=== PATIENT | male | born 1980 | race Caucasian/White ===

== ENCOUNTER 2022-08-01 19:32 | Emergency (ER) | payer BC, OTHER ==
[~2022-08-01] VITALS: Ht 178 cm; Wt 118.0 kg
[2022-08-01] MEDS ORDERED: ASPI-479 (19:45)
[2022-08-01] MEDS ORDERED: MECL-149 (19:45)
[2022-08-01] MEDS ORDERED: FAMO20TA5 (19:45)
[2022-08-01] MEDS ORDERED: MULT-567 (19:45)
[2022-08-01] MEDS ORDERED: NS IV 1000 ML 1,000 ML IV SCH (20:00)
[2022-08-01] MEDS ORDERED: ONDANSETRON 4 MG/2 ML (SDV) Z0FRAN IVP ONE (20:00)
[2022-08-01 20:09] LABS: BASOPHILS % (AUTO) 0 % (0-10); EOSINOPHILS % (AUTO) 0 % (0-10); HEMATOCRIT 49 % (40-54); HEMOGLOBIN 16.8 g/dL (13.3-17.7); LYMPHOCYTES # (AUTO) 1.2 10^3/uL (1.0-4.0); LYMPHOCYTES % (AUTO) 9 % (12-44); MEAN CORPUSCULAR HEMOGLOBIN 31 pg (25-34); MEAN CORPUSCULAR HGB CONC 35 g/dL (32-36); MEAN CORPUSCULAR VOLUME 90 fL (80-99); MEAN PLATELET VOLUME 9.9 fL (9.0-12.2); MONOCYTES # (AUTO) 0.6 10^3/uL (0.0-1.0); MONOCYTES % (AUTO) 5 % (0-12); NEUTROPHILS % (AUTO) 85 % (42-75); PLATELET COUNT 266 10^3/uL (130-400); WHITE BLOOD COUNT 12.9 10^3/uL (4.3-11.0)
[2022-08-01 20:29] LABS: ALBUMIN 4.4 GM/DL (3.2-4.5); BILIRUBIN,TOTAL 0.3 MG/DL (0.1-1.0); CALCIUM 9.6 MG/DL (8.5-10.1); CREATININE SERUM 1.1 MG/DL (0.60-1.30); POTASSIUM 4.1 MMOL/L (3.6-5.0); TOTAL PROTEIN 7.7 GM/DL (6.4-8.2)
[2022-08-01] MEDS ORDERED: MECLIZINE 25 MG (ANTIVERT) TAB PO ONE (20:45)
[2022-08-01] MEDS ORDERED: MECL-149 PO (20:58)
[2022-08-01] MEDS ORDERED: ONDA4TAB11 SL (20:58)
--- NOTE | 2022-08-01 20:59 | ED General ---
General Chief Complaint: Dizziness/Syncope Stated Complaint: VOMITING/DIZZY Nursing Triage Note: woke up at 0400 with spinning dizziness causing n/v with sudden movement. seen at [facility] & sent here. Source of Information: Patient Exam Limitations: No Limitations (RASHID MESSER APRN) History of Present Illness Date Seen by Provider: Aug 01, 2022 Time Seen by Provider: 19:40 Initial Comments Patient is a 42-year-old male who presents to the emergency department for evaluation of dizziness, nausea, and vomiting that began acutely this morning at 4 AM. Patient denies any pain at this time. He states he has had episodes of similar symptomology in the past. He was seen at [facility] walk-in [facility] and referred here for further evaluation. Patient states he feels like the room is spinning especially when he changes positions or moves his head. He states this spinning causes him to feel nauseous and vomit. Denies any focal numbness/weakness. Denies any vision change. He has not taken anything for the symptoms today. (RASHID MESSER APRN) Allergies and Home Medications Allergies Coded Allergies: sertraline (Verified Allergy, Unknown, 08/01/22) Patient Home Medication List Home Medication List Reviewed: Yes (RASHID MESSER APRN) Aspirin (Adult Low Dose Aspirin EC) 81 Mg Tablet., (Reported) Entered as Reported by: LETTY LEROY on 08/01/221944 Last Action: New Order Famotidine (Famotidine) 20 Mg Tablet, (Reported) Entered as Reported by: LETTY LEROY on 08/01/221944 Last Action: New Order Meclizine HCl (Meclizine HCl) 25 Mg Tablet, (Reported) Entered as Reported by: LETTY LEROY on 08/01/221944 Last Action: New Order Meclizine HCl (Meclizine HCl) 25 Mg Tablet, 25 MG PO Q8H Prescribed by: Rashid Messer on 08/01/222057 Multivitamin (Multivitamins) 1 Each Tablet, (Reported) Entered as Reported by: LETTY LEROY on 08/01/221944 Last Action: New Order Ondansetron (Ondansetron Odt) 4 Mg Tab.rapdis, 4 MG SL Q4H PRN for NAUSEA/VOMITING Prescribed by: Rashid Messer on 08/01/222057 Review of Systems Review of Systems Constitutional: see HPI, dizziness EENTM: no symptoms reported Respiratory: no symptoms reported Cardiovascular: no symptoms reported Gastrointestinal: see HPI, nausea, vomiting Genitourinary: no symptoms reported Musculoskeletal: no symptoms reported Skin: no symptoms reported (RASHID MESSER APRN) Past Xdgzwti-Cnzyka-Ljaipo Hx Patient Social History Tobacco Use?: Yes Substance use?: No Alcohol Use?: No Pt feels they are or have been: No (RASHID MESSER APRN) Immunizations Up To Date First/Initial COVID19 Vaccinat: x2 (RASHID MESSER APRN) Past Medical History Surgery/Hospitalization HX: vertigo, gerd (RASHID MESSER APRN) Physical Exam Vital Signs Vital Signs - First Documented 08/01/22 19:38 Temp 36.1 Pulse 92 Resp 18 B/P (MAP) 142/81 (101) Pulse Ox 96 O2 Delivery Room Air (SAMIA,JEWELS K DO) Vital Signs Capillary Refill : Less Than 3 Seconds (RASHID MESSER APRN) Height, Weight, BMI Height: '" Weight: lbs. oz. kg; 37.00 BMI Method: General Appearance: No Apparent Distress, WD/WN HEENT: PERRL/EOMI, TMs Normal, Normal ENT Inspection, Pharynx Normal Neck: Normal Inspection, Non Tender, Supple Respiratory: Chest Non Tender, Lungs Clear, Normal Breath Sounds, No Accessory Muscle Use, No Respiratory Distress Cardiovascular: Regular Rate, Rhythm, Normal Peripheral Pulses Gastrointestinal: Non Tender, Soft Extremity: No Calf Tenderness Neurologic/Psychiatric: Alert, Oriented x3, No Motor/Sensory Deficits, Normal Mood/Affect Skin: Normal Color, Warm/Dry (RASHID MESSER APRN) Progress/Results/Core Measures Suspected Sepsis SIRS Temperature: Pulse: 92 Respiratory Rate: 18 Laboratory Tests 08/01/22 19:53: White Blood Count 12.9H Blood Pressure 142 /81 Mean: 101 Laboratory Tests 08/01/22 19:53: Creatinine 1.10, Platelet Count 266, Total Bilirubin 0.3 (RASHID MESSER APRN) Results/Orders Lab Results Laboratory Tests Test 08/01/22 19:53 Range/Units White Blood Count 12.9 H 4.3-11.0 10^3/uL Red Blood Count 5.41 4.30-5.52 10^6/uL Hemoglobin 16.8 13.3-17.7 g/dL Hematocrit 49 40-54 % Mean Corpuscular Volume 90 80-99 fL Mean Corpuscular Hemoglobin 31 25-34 pg Mean Corpuscular Hemoglobin Concent 35 32-36 g/dL Red Cell Distribution Width 12.9 10.0-14.5 % Platelet Count 266 130-400 10^3/uL Mean Platelet Volume 9.9 9.0-12.2 fL Immature Granulocyte % (Auto) 0 % Neutrophils (%) (Auto) 85 H 42-75 % Lymphocytes (%) (Auto) 9 L 12-44 % Monocytes (%) (Auto) 5 0-12 % Eosinophils (%) (Auto) 0 0-10 % Basophils (%) (Auto) 0 0-10 % Neutrophils # (Auto) 11.0 H 1.8-7.8 10^3/uL Lymphocytes # (Auto) 1.2 1.0-4.0 10^3/uL Monocytes # (Auto) 0.6 0.0-1.0 10^3/uL Eosinophils # (Auto) 0.0 0.0-0.3 10^3/uL Basophils # (Auto) 0.0 0.0-0.1 10^3/uL Immature Granulocyte # (Auto) 0.1 0.0-0.1 10^3/uL Sodium Level 138 135-145 MMOL/L Potassium Level 4.1 3.6-5.0 MMOL/L Chloride Level 103 98-107 MMOL/L Carbon Dioxide Level 21 21-32 MMOL/L Anion Gap 14 5-14 MMOL/L Blood Urea Nitrogen 13 7-18 MG/DL Creatinine 1.10 0.60-1.30 MG/DL Estimat Glomerular Filtration Rate 86 BUN/Creatinine Ratio 12 Glucose Level 136 H 70-105 MG/DL Calcium Level 9.6 8.5-10.1 MG/DL Corrected Calcium 9.3 8.5-10.1 MG/DL Total Bilirubin 0.3 0.1-1.0 MG/DL Aspartate Amino Transf (AST/SGOT) 20 5-34 U/L Alanine Aminotransferase (ALT/SGPT) 35 0-55 U/L Alkaline Phosphatase 101 40-136 U/L Total Protein 7.7 6.4-8.2 GM/DL Albumin 4.4 3.2-4.5 GM/DL (JEWELS GRACIA DO) Medications Given in ED Current Medications Medications Dose Ordered Sig/Mark Route Start Time Stop Time Status Last Admin Dose Admin Meclizine HCl 25 mg ONCE ONCE PO 08/01/22 20:45 08/01/22 20:46 DC 08/01/22 20:38 25 MG Ondansetron HCl 4 mg ONCE ONCE IVP 08/01/22 20:00 08/01/22 20:01 DC 08/01/22 20:02 4 MG (SURAJ GRACIAA Liat GRAFF) Vital Signs/I&O 08/01/22 08/01/22 19:38 21:01 Temp 36.1 36.7 Pulse 92 80 Resp 18 16 B/P (MAP) 142/81 (101) 130/81 Pulse Ox 96 99 O2 Delivery Room Air Room Air 08/02/22 00:00 Intake Total 1000 ml Balance 1000 ml (JEWELS GRACIA DO) Vital Signs/I&O Capillary Refill : Less Than 3 Seconds (RASHID MESSER APRN) Blood Pressure Mean: 101 Progress Note : Progress Note Patient is nontoxic and well-hydrated on exam. Abdominal exam is reassuring. No focal neurologic deficits noted. No indication for cross-sectional imaging of the head at this time. Laboratory evaluation reassuring. Patient was given a liter of normal saline as well as a dose of Zofran. He had improvement in his nausea but the dizziness remained. He was able to keep down a dose of meclizine which she states helped some with the spinning sensation. Will discharge home with recommendations for supportive care and close follow-up with PCP. Return precautions for urgent symptomology discussed. Patient verbalized understanding. (RASHID MESSER APRN) Departure Impression Primary Impression: Vertigo Disposition: HOME, SELF-CARE Condition: Stable Departure-Patient Inst. Decision time for Depature: 20:55 (RASHID MESSER APRN) Referrals: [facility] (PCP/Family) Primary Care Physician Patient Instructions: Vertigo (a Type of Dizziness) (DC) Scripts Meclizine HCl (Meclizine HCl) 25 Mg Tablet 25 MG PO Q8H, #15 TAB 0 Refills Prov: RASHID MESSER APRN 08/01/22 Ondansetron (Ondansetron Odt) 4 Mg Tab.rapdis 4 MG SL Q4H PRN for NAUSEA/VOMITING, #24 TAB 0 Refills Prov: RSAHID MESSER [employer] 08/01/22 ATTENDING PHYSICIAN NOTE: I WAS PHYSICALLY PRESENT ER PHYSICIAN, BUT I WAS NOT INVOLVED IN ANY DECISION MAKING OR ANY CARE OF THIS PATIENT, AND I AM NOT COLLABORATING PHYSICIAN. (JEWELS GRACIA DO) RASHID MESSER APRN Aug 01, 2022 20:59 JEWELS GRACIA DO Aug 02, 2022 04:18
[2022-08-01 21:01] VITALS: BP 130/81
== END 2022-08-01 21:08 | disposition home or self-care (01) ==
LOC: ER 19:33
DX: R42 Dizziness and giddiness (principal)
CPT/HCPCS: 36415; 80053; 85025; 99283

== ENCOUNTER 2023-02-23 20:04 | Emergency (ER) | payer BC ==
[~2023-02-23] VITALS: Ht 177.8 cm; Wt 111.1 kg
[~2023-02-23 20:04] MED LIST: ASPI-479; FAMO20TA5; MECL-149; MECL-149 PO; MULT-567; ONDA4TAB11 SL
[2023-02-23 20:10] VITALS: BP 139/99
--- NOTE | 2023-02-23 20:27 | ED Upper Extremity ---
General Chief Complaint: Upper Extremity Stated Complaint: LEFT ARM INJURY Nursing Triage Note: PT AMB TO [facility] W C/O LEFT ARM INJ 20 MINS AGO WHEN HE WAS LIFTING AN OBJECT INTO A TRUCK AND THE DOLLEY SLIPPED. PT C/O BICEP PAIN. A&OX4. Source: patient Exam Limitations: no limitations History of Present Illness Date Seen by Provider: Feb 23, 2023 Time Seen by Provider: 20:16 Initial Comments 42-year-old male presents emergency department today for left upper arm pain. He was lifting at work and the box was dropping and he tried to hold on. He felt a pop in his left arm region and he thinks he tore his bicep. He had a similar injury previously in his life he states it "was not this bad." Denies any other injuries. All other systems reviewed and negative except documented per HPI. Voice recognition software was used to help create this chart Allergies and Home Medications Allergies Coded Allergies: sertraline (Verified Allergy, Unknown, 08/01/22) Patient Home Medication List Home Medication List Reviewed: Yes Aspirin (Adult Low Dose Aspirin EC) 81 Mg Tablet., (Reported) Entered as Reported by: LETTY LEROY on 08/01/221944 Famotidine (Famotidine) 20 Mg Tablet, (Reported) Entered as Reported by: LETTY LEROY on 08/01/221944 Meclizine HCl (Meclizine HCl) 25 Mg Tablet, (Reported) Entered as Reported by: LETTY LEROY on 08/01/221944 Meclizine HCl (Meclizine HCl) 25 Mg Tablet, 25 MG PO Q8H Prescribed by: Rashid Messer on 08/01/222057 Multivitamin (Multivitamins) 1 Each Tablet, (Reported) Entered as Reported by: LETTY LEROY on 08/01/221944 Ondansetron (Ondansetron Odt) 4 Mg Tab.rapdis, 4 MG SL Q4H PRN for NAUSEA/VOMITING Prescribed by: Rashid Messer on 08/01/222057 Review of Systems Constitutional: see HPI Past Ysprnab-Jbqyla-Cvxiba Hx Patient Social History Tobacco Use?: No Use of E-Cig and/or Vaping dev: Yes E-Cig or Vaping type used: Nicotine Use of E-Cig and/or Vaping Indra: Current Everyday User Substance use?: No Alcohol Use?: No Immunizations Up To Date First/Initial COVID19 Vaccinat: 2020 Second COVID19 Vaccination Filemon: 2020 Third COVID19 Vaccination Date: 2021 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 oz. kg; 35.00 BMI Method: General Appearance: WD/WN, no apparent distress Cardiovascular: regular rate, rhythm, no murmur Respiratory: chest non-tender, lungs clear, normal breath sounds Gastrointestinal: non tender, soft Shoulder: normal inspection, non-tender, no evidence of injury Elbow/Forearm: pain (Tenderness palpation left bicipital long head. He has minimal engagement of this muscle with range of motion. Does appear that the biceps is torn. Otherwise neurovascular motor and sensory intact.) Progress/Results/Core Measures Results/Orders My Orders Orders - NEVILLEALVARO L DO Humerus, Left, 2 Views (02/23/23 20:24) Vital Signs/I&O Blood Pressure Mean: 112 Departure Communication (Admissions) Patient appears to have what is a partial bicep tear on the left side. He has had this in the past which makes this most likely diagnosis. Regardless we obtained imaging regarding bony abnormality or acute abnormality and this was negative on my independent review. We placed him in a sling and he will follow- up with orthopedics. Outside of bicep function he is neurovascular motor and sensory intact. Impression Primary Impression: Biceps muscle tear Qualified Codes: S46.212A - Strain of muscle, fascia and tendon of other p arts of biceps, left arm, initial encounter Disposition: 01 HOME, SELF-CARE Condition: Stable Departure-Patient Inst. Referrals: [facility] [place] Primary Care Physician DEB FISH MD Patient Instructions: How to Use a Shoulder Sling Add. Discharge Instructions: You likely tore your bicep muscle. Please keep your arm in the sling and follow-up by calling to schedule appoint with orthopedics. Return to the emergency department for any severe concerns All discharge instructions reviewed with patient and/or family. Voiced understanding. ALVARO LOZADA DO Feb 23, 2023 20:27
--- NOTE | 2023-02-23 20:39 | Diagnostic Imaging Report ---
INDICATION: Injury to arm 20 minutes ago, lifting an object into a truck warren slipped, biceps pain. TECHNIQUE: AP and lateral views of the left humerus CORRELATION STUDY: None FINDINGS: The humerus has an unremarkable appearance. The visualized portions of the shoulder and elbow are unremarkable. Soft tissues are unremarkable. IMPRESSION: 1. Negative for acute bony abnormality of the humerus. Dictated by: Dictated on workstation # [id number]
== END 2023-02-23 20:57 | disposition home or self-care (01) ==
LOC: EDUNIT# 20:04 → ER 20:06
DX: S46.112A Strain of muscle, fascia and tendon of long head of biceps, left arm, initial encounter (principal); F17.290 Nicotine dependence, other tobacco product, uncomplicated; X50.1XXA Overexertion from prolonged static or awkward postures, initial encounter; Y92.812 Truck as the place of occurrence of the external cause; Y99.0 Civilian activity done for income or pay
CPT/HCPCS: 73060

== ENCOUNTER 2023-03-12 14:02 | Outpatient (CLI) | payer OTHER, BC ==
[~2023-03-12] VITALS: Ht 177.8 cm; Wt 110.5 kg
[~2023-03-12 14:02] MED LIST changes: -FAMO20TA5; +FAMO20TA5 PO
[2023-03-12] MEDS ORDERED: ASPI-1238 PO (15:18)
[2023-03-12] MEDS ORDERED: SEMA0.25 SQ (15:18)
== END 2023-03-12 15:39 | disposition home or self-care (01) ==
LOC: PREOP 14:02
PROVIDERS: ATTEND Orthopaedic Surgery
DX: Z01.818 Encounter for other preprocedural examination (principal)

== ENCOUNTER 2023-03-13 11:30 | Day surgery (SDC) | payer BC ==
[~2023-03-13] VITALS: Ht 177.8 cm; Wt 110.5 kg
[2023-03-13] VITALS (11 sets, daily range): BP systolic 124–157; BP diastolic 78–98
[~2023-03-13 11:30] MED LIST changes: +ASPI-1238 PO; +SEMA0.25 SQ
[2023-03-13] MEDS ORDERED: ceFAZolin INJECTION 2,000 MG in NS (IVPB) 50 ML IV ONE (12:00)
[2023-03-13] MEDS ORDERED: HYDROcodone/APAP 7.5 MG/325 MG (LORTAB, LORCET PLUS) TABLET PO PRN (12:15)
--- NOTE | 2023-03-13 12:22 | Progress Note-Pre Operative ---
Pre-Operative Progress Note Date of Available H&P: Mar 12, 2023 Date H&P Reviewed: Mar 13, 2023 Time H&P Reviewed: 12:01 Changes from last HP none Pre-Operative Diagnosis: left distal biceps tear TRENA KENDALL MD Mar 13, 2023 12:22
--- NOTE | 2023-03-13 12:23 | Progress Note-Post Operative ---
Post-Operative Progess Note Surgeon (s)/Turning Sander Operator (s) Surgeon TRENA KENDALL MD Turning Sander Operator: Samy Haddad Pre-Operative Diagnosis left distal biceps tear Post-Operative Diagnosis left distal biceps tear Procedure & Operative Findings Date of Procedure 03/13/23 Procedure Performed/Findings left distal biceps repair Anesthesia Type GETA Estimated Blood Loss Estimated blood loss (mL): minimal Specimens/Packing Specimens Removed none Packing: none TRENA KENDALL MD Mar 13, 2023 12:23
[2023-03-13] MEDS: LACTATED RINGERS 1,000 ML IV PRN ×2 (12:25→14:27)
[2023-03-13] MEDS ORDERED: BUPIVACAINE 0.5% 30 ML (SENSORCAINE) VIAL ONE (12:47)
[2023-03-13] MEDS ORDERED: LIDOCAINE PF 2% 5 ML (XYLOCAINE) VIAL ONE (12:54)
[2023-03-13] MEDS ORDERED: proPOfol 200 MG/20 ML (DIPRIVAN) VIAL IV ONE (12:54)
[2023-03-13] MEDS ORDERED: SEVOFLURANE (ULTANE) 15 ML INHAL SOLN ONE ×2 (12:54→13:58)
[2023-03-13] MEDS ORDERED: fentaNYL INJ 100 MCG/2 ML AMP ONE (12:54)
[2023-03-13] MEDS ORDERED: MIDAZOLAM 2 MG/2 ML (VERSED) VIAL ONE (12:54)
[2023-03-13] MEDS ORDERED: ONDANSETRON 4 MG/2 ML (SDV) Z0FRAN ONE (12:54)
[2023-03-13] MEDS ORDERED: HYDROmorphone 2 MG/ML VIAL (DILAUDID) ONE (13:16)
[2023-03-13] MEDS ORDERED: ROCURONIUM 50 MG/5 ML (ZEMURON) VIAL IV ONE (13:17)
[2023-03-13] MEDS ORDERED: ESMOLOL 100 MG/10 ML (BREVIBLOC) VIAL ONE (13:17)
[2023-03-13] MEDS ORDERED: METOCLOPRAMIDE INJ 10 MG/2 ML (REGLAN) ONE (13:18)
[2023-03-13] MEDS ORDERED: GLYCOPYRROLATE 0.2 MG/ML (ROBINUL) 2 ML VIAL ONE (13:57)
[2023-03-13] MEDS ORDERED: NEOSTIGMINE (BLOXIVERZ ) 1 MG/1ML 10 ML VIAL ONE (13:58)
[2023-03-13] MEDS ORDERED: KETOROLAC 30 MG/ML VIAL ONE (13:59)
[2023-03-13] MEDS ORDERED: SUGAMMADEX 500 MG/5 ML VIAL (BRIDION) IV ONE (14:11)
[2023-03-13] MEDS ORDERED: BUPIVACAINE 0.5% 30 ML (SENSORCAINE) VIAL INJ ONE (14:22)
--- NOTE | 2023-03-13 14:23 | Anesthesia-General Post-Op ---
General Patient Condition Mental Status/LOC: Same as Preop Cardiovascular: Satisfactory Nausea/Vomiting: Absent Respiratory: Satisfactory Pain: Controlled Complications: Absent Post Op Complications Complications None Follow Up Care/Instructions Patient Instructions None needed. Anesthesia/Patient Condition Patient Condition Patient is doing well, no complaints, stable vital signs, no apparent adverse anesthesia problems. No complications reported per nursing. D/C home per [facility] [place] Criteria: Yes DIANA TINAJERO CRNA Mar 13, 2023 14:23
[2023-03-13] MEDS ORDERED: MEPERIDINE (DEMEROL) INJ 50 MG/ML IVP ONE (14:30)
[2023-03-13] MEDS ORDERED: HYDROmorphone 2 MG/ML VIAL (DILAUDID) IV ONE (14:30)
[2023-03-13] MEDS ORDERED: ONDANSETRON 4 MG/2 ML (SDV) Z0FRAN IVP PRN (14:30)
--- NOTE | 2023-03-13 18:09 | OPERATIVE REPORT ---
DATE OF SERVICE: 03/13/2023 PREOPERATIVE DIAGNOSIS: Left distal biceps tendon tear. POSTOPERATIVE DIAGNOSIS: Left distal biceps tendon tear. PROCEDURE: Left distal biceps tendon repair. SURGEON: Sancho Kendall MD DESIGN STUDIO CONSULTANT: MARIAA Cohn, who assisted throughout the procedure and closed the incision. ANESTHESIA: General endotracheal by Soto Roberts CRNA. TOURNIQUET TIME: 30 minutes at 250 mmHg. ESTIMATED BLOOD LOSS: Minimal. DRAINS: None. COMPLICATIONS: None. POSTOPERATIVE PLAN: Splint wear for 2 weeks with early range of motion and brace wear at 2 weeks. The patient was transported to the recovery room in awake and stable condition. STATEMENT OF MEDICAL NECESSITY: The patient is a 42-year-old gentleman who, while lifting a gazebo, sustained an injury to his left elbow when the gazebo slipped. He felt and heard a pop. He has had pain in his antecubital fossa and weakness. Ultrasound confirmed disruption of his distal biceps tendon. Regarding treatment options, the patient elected to proceed with surgical intervention in order to maintain his strength and function. DESCRIPTION OF PROCEDURE: After risks and benefits of the procedure were discussed and questions were answered and informed consent was signed and placed on the chart, the operative site was confirmed in the preoperative holding area and initialed by the surgeon. The patient was then transported to the operating room and after adequate levels of general endotracheal anesthetic were obtained, a timeout was called, confirming the operative site. The left upper extremity was prepped and draped in the usual sterile fashion with arm elevated and tourniquet inflated to 250 mmHg. A longitudinal incision was made over the radial tuberosity. The superficial branch of the radial nerve was identified and retracted and carefully protected and was intact at the conclusion of the procedure. The interval between the brachioradialis and pronator teres was bluntly dissected to the radial tuberosity. No retractors were placed directly on the bony surface. The radial tuberosity was exposed in subperiosteal fashion. The deeper branch of the radial nerve was identified and carefully protected throughout the procedure and intact at the conclusion of the procedure. The antecubital fossa area was then bluntly dissected through finger dissection until the distal aspect of the biceps stump was identified. This was identified and then pulled into the wound. This was then whipstitched over the last 4 cm with the FiberWire suture. This was then passed through the biceps button. The radial tuberosity was then exposed and while the elbow was held in supination, the guidewire was passed through both cortices and aimed proximally slightly. This was then overreamed with an 8 mm reamer on the volar cortex. The area was then irrigated. The button was then passed under direct visualization through the far cortex. The button was then flipped and the tendon was pulled into the prepared bony trough and excellent repair was obtained. There was no undue tension with the arm in full extension. This was then oversewn on itself. The elbow was taken through range of motion with full flexion and extension noted and full pronation and supination noted. The wound was copiously irrigated and the tourniquet was deflated. The neurovascular structures were identified and ensured that there had been no damage done to these. These were intact. No significant bleeding was noted after tourniquet deflation. The wound was further irrigated. A 2-0 Vicryl was used for the subcutaneous tissue and donell used on the skin. Soft dressing and splint were applied. The patient was transported to recovery room in awake and stable condition. Job ID: [id number] DocumentID: [id number] Dictated Date: 03/13/2023 14:10:39 Pipe Caulker Date: 03/13/2023 18:07:00 Dictated By: SANCOH KENDALL MD
== END 2023-03-13 16:10 | disposition home or self-care (01) ==
LOC: SDC 11:30
PROVIDERS: ATTEND Orthopaedic Surgery
DX: M66.822 Spontaneous rupture of other tendons, left upper arm (principal); S46.212A Strain of muscle, fascia and tendon of other parts of biceps, left arm, initial encounter; F17.200 Nicotine dependence, unspecified, uncomplicated
CPT/HCPCS: 24342; 87081; C1713